=== PATIENT | male | born 1985 | race Hispanic/Latino ===

== ENCOUNTER 2023-08-09 14:49 | Emergency (ER) | payer SELFPAY ==
[2023-08-09] MEDS ORDERED: MORPHINE 4 MG/ML SYR ONE (15:01)
[2023-08-09] MEDS ORDERED: ONDANSETRON 4 MG/2 ML VIAL ONE (15:01)
[2023-08-09] MEDS ORDERED: NA CHLORIDE 0.9% 1,000 ML ONE (15:01)
[2023-08-09 15:14] LABS: Absolute Basophils 0.1 K/uL (0-0.5); Absolute Eosinophils 0.1 K/uL (0-0.5); Absolute Lymphocytes (CBC) 1.9 K/uL (0.7-4.9); Absolute Monocytes 0.7 K/uL (0.1-1.3); Absolute Neutrophil 4.7 K/uL (1.8-8.0); Basophils % 0.8 % (0-1.3); Eosinophils % 1.1 % (0-4.4); Hematocrit 44.5 % (39.6-49.0); Hemoglobin 14.8 g/dL (13.6-17.9); Lymphocytes % 26.1 % (15.3-44.8); MCHC 33.3 g/dL (32.0-36.0); MCV 90.1 fL (80-100); MPV 8.6 fL (7.6-11.3); Platelets 258 thou/uL (152-406); RBC Red Blood Cell Count 4.94 M/uL (4.33-5.43); Red Cell Distribution Width 12.9 % (12.1-15.2)
[2023-08-09 15:31] LABS: Albumin 3.9 g/dL (3.4-5.0); Anion Gap 7.4 mEq/L (5.0-15.0); Bilirubin Total 0.5 mg/dL (0.2-1.0); Potassium 3.4 mEq/L (3.5-5.1); Protein, Total 7.9 g/dL (6.4-8.2)
[2023-08-09] MEDS ORDERED: KETOROLAC 30 MG/ML INJ ONE (15:48)
--- NOTE | 2023-08-09 15:59 | RAD REPORT ---
EXAM DESCRIPTION: CT - Stone Protocol - 08/09/2023 3:18 pm CLINICAL HISTORY: FLANK PAIN COMPARISON: No comparisons TECHNIQUE: Thin cut axial CT imaging of the abdomen and pelvis was performed without IV contrast. Mu ltiplanar reformats were generated and reviewed. All CT scans are performed using dose optimization technique as appropriate and may include automated exposure control or mA/KV adjustment according to patient size. FINDINGS: No suspicious findings in the lung bases. The liver, spleen, adrenal glands, and pancreas show no suspicious findings. Gallbladder and biliary tree are also without suspicious finding. Symmetric renal contour, without suspicious parenchymal findings within limits of noncontrast techniq ue. Moderate left hydroureteronephrosis. 8 mm calculus at the left vesicoureteral junction. No dilated bowel loops or bowel wall thickening. No free air, free fluid or inflammatory stranding. N o hernia, mass or bulky lymphadenopathy. The urinary bladder is decompressed limiting evaluation. No suspicious bony findings. IMPRESSION: Moderate left hydroureteronephrosis. 8 mm calculus at the left vesicoureteral junction. The findings were communicated to Itz Gonzalez on 08/09/2023 at 15:48 hours.
[2023-08-09 16:14] LABS: Sqamous Epithelial <5 /HPF (None Seen); Urine Bacteria <20 /HPF (<20); Urine Bilirubin 2+ (Negative); Urine Blood 1+ (Negative); Urine Clarity Extremely Turbid (Clear); Urine Color Dark-Orange (Yellow); Urine Culture Reflex Order NOT NEEDED; Urine Glucose NEGATIVE (Negative); Urine Ketones NEGATIVE (Negative); Urine Microscopic Reflex YN ORDER UMIC; Urine Mucus Slight /HPF (None Seen); Urine Nitrite 2+ (Negative); Urine Protein 1+ (Negative); Urine RBC 21-50 /HPF (None Seen); Urine Urobilinogen 3+ (Normal); Urine WBC <5 /HPF (<5); Urine pH 7.5 (5.0-7.0)
--- NOTE | 2023-08-09 16:33 | EDPHYS ---
Physician Documentation [facility] Name: Scooter Sandoval Age: 38 yrs Sex: Male : 1985 Arrival Date: 08/09/2023 Time: 14:49 Bed 8 Private MD: ED Physician Itz Gonzalez HPI: 08/08 16:27 This 38 yrs old Male presents to ER via Ambulatory with complaints of kb Abdominal Pain. 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 Denies fever, n/v/d. Historical: - Allergies: 14:56 No Known Allergies; mb9 - Home Meds: 14:56 None [Active]; mb9 - PMHx: 14:56 None; mb9 - PSHx: 14:56 None; mb9 - Immunization history:: Adult Immunizations up to date. - Infectious Disease History:: Denies. - Social history:: Smoking status: Patient denies any tobacco usage or history of. ROS: 16:27 Constitutional: As per HPI kb Exam: 16:27 Constitutional: This is a well developed, well nourished patient who is awake, alert, kb and in no acute distress. Head/Face: Normocephalic, atraumatic. ENT: Moist Mucous membranes Cardiovascular: Regular rate Respiratory: Respirations even and unlabored. No increased work of breathing. Talking in full sentences Abdomen/GI: Soft, non-tender. No distention Skin: Warm, dry with normal turgor. Normal color. MS/ Extremity: Pulses equal, no cyanosis. Neurovascular intact. Full, normal range of motion. Neuro: Awake and alert, GCS 15, oriented to person, place, time, and situation. Moves all extremities. Normal gait. 16:27 Back: CVA tenderness, that is moderate, is noted on the left, Vital Signs: 14:57 BP 159 / 104; Pulse 105; Resp 18; Temp 98; Pulse Ox 100% on R/A; Weight 83.91 kg; mb9 Height 5 ft. 3 in. ; Pain 10/10; 15:07 BP 150 / 75; Pulse 90; Resp 18; Pulse Ox 100% on R/A; Pain 10/10; ld1 16:45 BP 136 / 72; Pulse 79; Resp 18; Pulse Ox 100% on R/A; Pain 1/10; ld1 14:57 Body Mass Index 32.77 (83.91 kg, 160.02 cm) mb9 14:57 Pain Scale: Adult mb9 15:07 Pain Scale: Adult ld1 16:45 Pain Scale: Adult ld1 MDM: 14:51 Patient medically screened. kb 16:26 Differential diagnosis: non-specific abd pain, Ureterolithiasis, urinary tract kb infection. Data reviewed: vital signs, nurses notes. Consideration of Admission/Observation Escalation of care including admission/observation considered. admission considered for 8mm stone with moderate hydronephrosis, but pain is controlled after treatment and pt is comfortable. Will discharge with instructions to follow up with Dr Sandoval. Pt in agreement. Counseling: I had a detailed discussion with the patient and/or guardian regarding the historical points, exam findings, and any diagnostic results supporting the discharge/admit diagnosis, lab results, radiology results, the need for outpatient follow up, a urologist, to return to the emergency department if symptoms worsen or persist or if there are any questions or concerns that arise at home. 08/08 14:58 Order name: CBC with Diff; Complete Time: 15:19 kb 08/08 14:58 Order name: CMP; Complete Time: 15:39 kb 08/08 14:58 Order name: Lipase; Complete Time: 15:39 kb 08/08 14:58 Order name: Urinalysis w/ reflexes; Complete Time: 16:20 kb 08/08 14:58 Order name: CT Stone Protocol; Complete Time: 16:04 kb 08/08 14:58 Order name: IV Saline Lock; Complete Time: 15:04 kb 08/08 14:58 Order name: Labs collected and sent; Complete Time: 15:04 kb Administered Medications: 15:07 Drug: NS 0.9% IV 1000 ml IV at 1 bolus Per protocol; 1000 mL bolus Route: IV; Rate: 1 ld1 bolus; Site: left antecubital; 15:07 Drug: Ondansetron IVP 4 mg IVP once; over 2 minutes Route: IVP; Site: left antecubital; ld1 15:07 Drug: morphine IVP or IV 4 mg IVP once over 4 mins Route: IVP; Infused Over: 4 mins; ld1 Site: left antecubital; 15:52 Drug: Ketorolac IVP 15 mg IVP once Route: IVP; Site: left antecubital; rs5 16:32 CANCELLED (Physician Discretion): magnesium sulfate1 grams IVPB once over 1 hrs kb 16:45 Drug: Flomax PO 0.4 mg PO once Route: PO; ld1 Disposition Summary: 08/09/23 16:32 Discharge Ordered Notes: Location: Home kb Condition: Stable kb Diagnosis - Calculus of ureter kb - Unspecified hydronephrosis kb Followup: kb - With: Emergency Department - When: As needed - Reason: Worsening of condition Followup: kb - With: Private Physician - When: 2 - 3 days - Reason: Recheck today's complaints, Continuance of care, Re-evaluation by your physician Followup: kb - With: Virgilio Sandoval MD - When: 2 - 3 days - Reason: Recheck today's complaints Discharge Instructions: - Discharge Summary Sheet kb - Kidney Stones, [id number] kb - Dietary Guidelines to Help Prevent Kidney Stones kb Forms: - Medication Reconciliation Form kb - Thank You Letter kb - Antibiotic Education kb - Prescription Opioid Use kb - Patient Portal Instructions kb - Leadership Thank You Letter kb Prescriptions: - Flomax 0.4 mg Oral capsule - take 1 capsule ORAL route daily; 10 capsule; Refills: 0, Product Selection kb Permitted - Zofran 4 mg Oral tablet - take 1 tablet ORAL route every 6 hours As needed; 12 tablet; Refills: 0, kb Product Selection Permitted - Diclofenac Sodium 75 mg Oral tablet, delayed release (enteric coated) - take 1 tablet ORAL route 2 times per day As needed; 30 tablet; Refills: 0, kb Product Selection Permitted - Tramadol 50 mg Oral Tablet - take 1 tablet ORAL route every 8 hours as needed; 12 tablet; Refills: 0, kb Product Selection Permitted Signatures: Dispatcher [employer] Suyapa Garcia FNP-C FNP-Lila Alvarez RN RN ld1 Tiara Muse RN RN mb9 Harish Caro RN RN rs5 Corrections: (The following items were deleted from the chart) 16:32 16:04 Magnesium Sulfate IVPB 1 grams IVPB once over 1 hrs ordered. kb kb
--- NOTE | 2023-08-09 16:33 | ER ---
Nurse's Notes [facility] Name: Scooter Sandoval Age: 38 yrs Sex: Male : 1985 Arrival Date: 08/09/2023 Time: 14:49 Bed 8 Private MD: Diagnosis: Calculus of ureter;Unspecified hydronephrosis Presentation: 08/08 14:57 Chief complaint: Patient states: "I started having left stomach pain that radiates to mb9 my left back 1-2 hrs ago. I'm peeing orange as well". Coronavirus screen: At this time, the client does not indicate any symptoms associated with coronavirus-19. Ebola Screen: No symptoms or risks identified at this time. Initial Sepsis Screen: Does the patient meet any 2 criteria? No. Patient's initial sepsis screen is negative. Does the patient have a suspected source of infection? No. Patient's initial sepsis screen is negative. Risk Assessment: Do you want to hurt yourself or someone else? Patient reports no desire to harm self or others. Onset of symptoms was August 09, 2023. 14:57 Method Of Arrival: Ambulatory 9 14:57 Acuity: FREEMAN 3 mb9 Triage Assessment: 14:58 General: Appears uncomfortable, Behavior is anxious. Pain: Complains of pain in abdomen mb9 Pain radiates to back. Historical: - Allergies: 14:56 No Known Allergies; mb9 - Home Meds: 14:56 None [Active]; mb9 - PMHx: 14:56 None; mb9 - PSHx: 14:56 None; mb9 - Immunization history:: Adult Immunizations up to date. - Infectious Disease History:: Denies. - Social history:: Smoking status: Patient denies any tobacco usage or history of. Screenin:07 [facility] ED Fall Risk Assessment (Adult) History of falling in the last 3 months, ld1 including since admission No falls in past 3 months (0 pts). Abuse screen: Denies threats or abuse. Denies injuries from another. Nutritional screening: No deficits noted. Tuberculosis screening: No symptoms or risk factors identified. Assessment: 15:07 General: Appears in no apparent distress. uncomfortable, Behavior is cooperative, ld1 anxious. Pain: Complains of pain in back Pain does not radiate. Pain currently is 10 out of 10 on a pain scale. Quality of pain is described as throbbing, Pain began suddenly, Is continuous. Neuro: Level of Consciousness is awake, alert, obeys commands, Oriented to person, place, time, situation. Cardiovascular: Capillary refill < 3 seconds Patient's skin is warm and dry. Respiratory: Airway is patent Respiratory effort is even, unlabored. GI: Abdomen is round non-distended, Bowel sounds present X 4 quads. Abd is soft Abd is non tender. : Reports inability to void, pain in left flank(s). EENT: No signs and/or symptoms were reported regarding the EENT system. Derm: No signs and/or symptoms reported regarding the dermatologic system. Musculoskeletal: No signs and/or symptoms reported regarding the musculoskeletal system. 16:45 Reassessment: Patient appears in no apparent distress at this time. No changes from ld1 previously documented assessment. Patient and/or family updated on plan of care and expected duration. Pain level reassessed. Patient states feeling better. Patient states symptoms have improved. Vital Signs: 14:57 BP 159 / 104; Pulse 105; Resp 18; Temp 98; Pulse Ox 100% on R/A; Weight 83.91 kg; mb9 Height 5 ft. 3 in. ; Pain 10/10; 15:07 BP 150 / 75; Pulse 90; Resp 18; Pulse Ox 100% on R/A; Pain 10/10; ld1 16:45 BP 136 / 72; Pulse 79; Resp 18; Pulse Ox 100% on R/A; Pain 1/10; ld1 14:57 Body Mass Index 32.77 (83.91 kg, 160.02 cm) mb9 14:57 Pain Scale: Adult mb9 15:07 Pain Scale: Adult ld1 16:45 Pain Scale: Adult ld1 ED Course: 14:51 Patient arrived in ED. mg5 14:51 Suyapa Isaac FNP-C is [facility]. kb 14:51 Itz Gonzalez MD is Attending Physician. kb 14:56 Arm band placed on. mb9 14:58 Triage completed. mb9 15:04 CBC with Diff Sent. mb9 15:04 CMP Sent. mb9 15:04 Lipase Sent. mb9 15:04 Initial lab(s) drawn, by nh, sent to lab. Inserted saline lock: 18 gauge in left mb9 antecubital area, using aseptic technique. Blood collected. 15:06 Placed in gown. Bed in low position. Call light in reach. Side rails up X 1. Client mb9 placed on continuous cardiac and pulse oximetry monitoring. NIBP monitoring applied. Door closed. Noise minimized. Warm blanket given. 15:07 No provider procedures requiring assistance completed. ld1 15:19 CT Stone Protocol In Process Unspecified. EDMS 15:25 Harish Caro, RN is Primary Nurse. rs5 16:33 Virgilio Sandoval MD is Referral Physician. kb 16:45 Provided Education on: medication usage. ld1 16:45 IV discontinued, intact, bleeding controlled, No redness/swelling at site. ld1 Administered Medications: 15:07 Drug: NS 0.9% IV 1000 ml IV at 1 bolus Per protocol; 1000 mL bolus Route: IV; Rate: 1 ld1 bolus; Site: left antecubital; 15:07 Drug: Ondansetron IVP 4 mg IVP once; over 2 minutes Route: IVP; Site: left antecubital; ld1 15:07 Drug: morphine IVP or IV 4 mg IVP once over 4 mins Route: IVP; Infused Over: 4 mins; ld1 Site: left antecubital; 15:52 Drug: Ketorolac IVP 15 mg IVP once Route: IVP; Site: left antecubital; rs5 16:32 CANCELLED (Physician Discretion): magnesium sulfate1 grams IVPB once over 1 hrs kb 16:45 Drug: Flomax PO 0.4 mg PO once Route: PO; ld1 Medication: 15:06 VIS not applicable for this client. mb9 Outcome: 16:32 Discharge ordered by . kb 16:45 Discharged to home ambulatory, ld1 16:45 Condition: stable 16:45 Discharge instructions given to patient, Instructed on discharge instructions, follow up and referral plans. medication usage, Demonstrated understanding of instructions, follow-up care, medications, Prescriptions given X 4, 16:46 Patient left the ED. ld1 Signatures: Dispatcher [employer] EDMS Suyapa Isaac, JUANCARLOS BRAND-Lila Alvarez RN RN ld1 Tiara Muse RN RN mb9 Harish Caro, ESPINOZA RN rs5 Liudmila Sandhu mg5
[2023-08-09] MEDS ORDERED: TAMSULOSIN 0.4 MG SR CAP ONE (16:36)
[2023-08-09 17:56] VITALS: BP 136/72; TEMP 98; O2SAT 100
== END 2023-08-09 16:46 | disposition home or self-care (01) ==
LOC: ER 14:49
DX: N20.1 Calculus of ureter (principal); N13.30 Unspecified hydronephrosis
CPT/HCPCS: 36415; 74176; 76377; 80053; 81001; 83690; 85025; J2405; J7030